=== PATIENT | female | born 1960 | race African-American/Black ===

== ENCOUNTER 2017-11-12 12:06 | Inpatient (IN) | payer OTHER ==
[2017-11-12 14:36] VITALS: BMI 18.8
--- NOTE | 2017-11-12 19:51 | HP ---
COWS - Scale Resting Pulse: 1= [place] 81-100 Sweatin= Chills/Flushing Restless Observation: 1= Difficult to Sit Still Pupil Size: 1= Pupils >than Normal Bone or Joint Aches: 1= Mild Discomfort Runny Nose/ Eye Tearin= Runny Nose/Eyes GI Upset > 30mins: 1= Stomach Cramp Tremor Observation: 1= Tremor [employer] [place], Not Seen Yawning Observation: 2= >3x During Session Anxiety or Irritability: 2=Irritable/Anxious Goose Flesh Skin: 0=Smooth Skin COWS Score: 13 CIWA Score - CIWA Score Nausea/Vomitin-Mild Nausea/No Vomiting Muscle Tremors: 2 Anxiety: 3 Agitation: 4-Moderately Restless Paroxysmal Sweats: 2 Orientation: 0-Oriented Tacttile Disturbances: 0-None Auditory Disturbances: 0-None Visual Disturbances: 0-None Headache: 0-None Present CIWA-Ar Total Score: 12 Admission ROS S - HPI Chief Complaint: opioid and alcohol withdrawal symptoms Allergies/Adverse Reactions: Allergies Allergy/AdvReac Type Severity Reaction Status Date / Time No Known Allergies Allergy Verified 11/12/17 14:56 History of Present Illness: 56 yo female with hx of nicotine, alcohol, and heroin (nasal) dependence is here seeking detox. Last detox four months ago [facility]. Longest period of sobriety seven months, seven yeas ago. Denies hx of overdoses or seizures. Reports hx of frequent blackouts with last episode three months ago. PMHX: COPD, HIV+ (stopped taking meds about six months ago). Denies any psychiatric history. Reports currently undomiciled. Exam Limitations: No Limitations - Ebola screening Have you traveled outside of the country in the last 21 days: No Have you had contact with anyone from an Ebola affected area: No Have you been sick,other than usual withdrawal symptoms: No Do you have a fever: No - Review of Systems Constitutional: Chills, Diaphoresis, Loss of Appetite, Changes in sleep, Weakness, Unintentional Wgt. Loss (20 lbs in the past six month) EENT: reports: No Symptoms Reported Respiratory: reports: Cough (x 3 months) Cardiac: reports: No Symptoms Reported GI: reports: Poor Appetite, Poor Fluid Intake, Indigestion, Abdominal cramping : reports: No Symptoms Reported Musculoskeletal: reports: Back Pain, Joint Pain Integumentary: reports: No Symptoms Reported Neuro: reports: No Symptoms reported Endocrine: reports: Increased Thirst Hematology: reports: See HPI Psychiatric: reports: Orientated x3, Depressed Other Systems: Reviewed and Negative Patient History - Patient Medical History Hx Anemia: No Hx Asthma: No Hx Chronic Obstructive Pulmonary Disease (COPD): Yes Hx Cancer: No Hx Cardiac Disorders: No Hx Congestive Heart Failure: No Hx Hypertension: No Hx Hypercholesterolemia: No Hx Pacemaker: No HX Cerebrovascular Accident: No Hx Seizures: No Hx Dementia: No Hx Diabetes: No Hx Gastrointestinal Disorders: No Hx Liver Disease: No Hx Genitourinary Disorders: No Hx Sexually Transmitted Disorders: No Hx Renal Disease (ESRD): No Hx Thyroid Disease: No Hx Human Immunodeficiency Virus (HIV): Yes Hx Hepatitis C: No Hx Depression: No Hx Suicide Attempt: No Hx Bipolar Disorder: No Hx Schizophrenia: No - Patient Surgical History Past Surgical History: No Hx Neurologic Surgery: No Hx Cataract Extraction: No Hx Cardiac Surgery: No Hx Lung Surgery: No Hx Breast Surgery: No Hx Breast Biopsy: No Hx Abdominal Surgery: No Hx Appendectomy: No Hx Cholecystectomy: No Hx Genitourinary Surgery: No Hx Section: No Hx Orthopedic Surgery: No Anesthesia Reaction: No - PPD History Previous Implant?: Yes Documented Results: Negative w/proof Implanted On Prior R Admission?: Yes Date: 07/15/12 Results: 0 mm PPD to be Administered?: No - Reproductive History Patient : No - Smoking Cessation Smoking history: Current every day smoker Have you smoked in the past 12 months: Yes Aproximately how many cigarettes per day: 8 Hx Chewing Tobacco Use: No Initiated information on smoking cessation: Yes 'Breaking Loose' booklet given: 11/12/17 - Substance & Tx. History Hx Alcohol Use: Yes Hx Substance Use: Yes Substance Use Type: Alcohol, Heroin Hx Substance Use Treatment: Yes (Last detox four months ago [facility].) - Substances Abused Heroin Route: Inhalation Frequency: Daily Amount used: 6-7 bags Age of first use: 17 Date of Last Use: 11/12/17 Alcohol-vodka/beer Route: Oral Frequency: Daily Amount used: 1 pt./1-6 pk. Age of first use: 17 Date of Last Use: 11/12/17 Family Disease History - Family Disease History Family Disease History: Other: Mother ( alcoholism ) Admission Physical Exam [facility] - Vital Signs Vital Signs: Vital Signs - 24 hr 11/12/17 14:34 Temperature 97.5 F L Pulse Rate 79 Respiratory 18 Rate Blood Pressure 118/79 - Physical General Appearance: Yes: Disheveled, Mild Distress, Thin, Tremorous, Anxious HEENTM: Yes: EOMI, Hearing grossly Normal, Normal ENT Inspection, Normocephalic , Normal Voice, UNIQUE, Pharynx Normal, Tm's normal Respiratory: Yes: Chest Non-Tender, Lungs Clear, Normal Breath Sounds, No Respiratory Distress, No Accessory Muscle Use Neck: Yes: Within Normal Limits Breast: Yes: Breast Exam Deferred Cardiology: Yes: Regular Rhythm, Regular Rate Abdominal: Yes: Normal Bowel Sounds, Non Tender, Flat, Soft Genitourinary: Yes: Within Normal Limits Back: Yes: Normal Inspection Musculoskeletal: Yes: full range of Motion, Gait Steady, Pelvis Stable Extremities: Yes: Normal Capillary Refill, Normal Inspection, Normal Range of Motion, Non-Tender 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, Fully Oriented, Alert, Motor Strength 5/5, Depressed Affect Integumentary: Yes: Normal Color, Warm, Diaphoresis Lymphatic: Yes: Within Normal Limits - Diagnostic (1) Alcohol dependence with withdrawal Current Visit: Yes Status: Acute Qualifiers: Complication of substance-induced condition: uncomplicated Qualified Code(s ): F10.230 - Alcohol dependence with withdrawal, uncomplicated (2) Opioid dependence with withdrawal Current Visit: Yes Status: Acute (3) Cough Current Visit: Yes Status: Acute Comment: x 3 months (4) COPD (chronic obstructive pulmonary disease) Current Visit: Yes Status: Chronic Qualifiers: COPD type: unspecified COPD Qualified Code(s): J44.9 - Chronic obstructive pulmonary disease, unspecified (5) Human immunodeficiency virus infection Current Visit: Yes Status: Chronic Comment: taken no meds in past six months (6) Weight decreased Current Visit: Yes Status: Active (7) Nicotine dependence Current Visit: Yes Status: Acute Qualifiers: Nicotine product type: cigarettes Cleared for Admission [facility] - Detox or Rehab [facility] Level of Care: Medically Managed Detox Regimen/Protocol: Methadone/Librium [facility] Breath Alcohol Content Breath Alcohol Content: 0 Urine Pregancy Test - Result Urine Test Results: Negative- NO Line Present Urine Drug Screen - Results Drug Screen Negative: No Urine Drug Screen Results: OPI-Opiates, BAR-Barbiturates, MTD-Methadone, OXY- Oxycodone, FEN-Fentanyl
[2017-11-12] MEDS ORDERED: ALBUTEROL SO4 8 GM HFA INHALER IH PRN (20:00)
[2017-11-12] MEDS ORDERED: MENTHOL/PHENOL 1 EACH UD MM PRN (20:06)
[2017-11-12] MEDS ORDERED: P-EPHED 60MG/TRIPROLIDI 2.5MG TABLET PO PRN (20:06)
[2017-11-12] MEDS ORDERED: MAGNESIUM CITRATE 300 ML BOTTLE PO PRN (20:06)
[2017-11-12] MEDS ORDERED: LOPERAMIDE HCL 2 MG CAPSULE PO PRN (20:06)
[2017-11-12] MEDS ORDERED: MAGNESIUM HYDROX 2400MG/30ML ORAL SUSPENSION 30 ML CUP PO PRN (20:06)
[2017-11-12] MEDS ORDERED: NICOTINE POLACRILEX 2 MG GUM BUC PRN (20:06)
[2017-11-12] MEDS ORDERED: ACETAMINOPHEN 325 MG TABLET (FP) PO PRN (20:06)
[2017-11-12] MEDS ORDERED: IBUPROFEN 400 MG TABLET (FP) PO PRN (20:06)
[2017-11-12] MEDS ORDERED: guaiFENesin/D-METHORPHAN HB 10 ML UNIT-DOSE CUPS PO PRN (20:06)
[2017-11-12] MEDS ORDERED: METHADONE HCL 10 MG TABLET (FOR DETOX USE ONLY) PO ONE ×2 (20:06→23:00)
[2017-11-12] MEDS ORDERED: MAG HYDROX/AL HYDROX/SIMETH 30 ML UNIT-DOSE CUP PO PRN (20:06)
[2017-11-12] MEDS ORDERED: chlordiazePOXIDE HCL 25 MG CAPSULE ONE (20:17)
[2017-11-12] MEDS: chlordiazePOXIDE HCL 25 MG CAPSULE PO PRN (20:21)
[2017-11-12] MEDS ORDERED: MELATONIN 5 MG TABLETS PO PRN (22:00)
[2017-11-12] MEDS: THIAMINE HCL 100 MG TABLET (FP) PO SCH (22:37)
[2017-11-12] MEDS: chlordiazePOXIDE HCL 25 MG CAPSULE PO SCH (22:38)
[2017-11-13 00:53] LABS: URINE APPEARANCE SLCLOUDY; URINE BILIRUBIN NEGATIVE (<2.0 mg/dL); URINE GLUCOSE (UA) NEGATIVE (NEGATIVE); URINE KETONE NEGATIVE (NEGATIVE); URINE LEUK ESTERASE NEGATIVE (NEGATIVE); URINE NITRITE NEGATIVE (NEGATIVE); URINE UROBILINOGEN 4.0 E.U/dl mg/dL (0.2-1.0)
[2017-11-13 00:54] LABS: URINE COLOR YELLOW; URINE PROTEIN 1+ (NEGATIVE)
[2017-11-13 01:00] LABS: EPI CELLS MANY /HPF (FEW); URINE MUCUS RARE
[2017-11-13] MEDS: chlordiazePOXIDE HCL 25 MG CAPSULE PO SCH ×4 (05:33→22:55)
--- NOTE | 2017-11-13 09:36 | EKG ---
Test Reason : Blood Pressure : / mmHG Vent. Rate : 072 BPM Atrial Rate : 072 BPM P-R Int : 150 ms QRS Dur : 084 ms QT Int : 432 ms P-R-T Axes : 086 074 076 degrees QTc Int : 473 ms NORMAL SINUS RHYTHM BIATRIAL ENLARGEMENT ABNORMAL ECG NO PREVIOUS ECGS AVAILABLE Confirmed by ASIA DELANEY MD ([id number]) on 11/13/2017 9:36:10 AM Referred By: Confirmed By:ASIA DELANEY MD
[2017-11-13] MEDS ORDERED: METHADONE HCL 10 MG TABLET (FOR DETOX USE ONLY) PO SCH (10:00)
[2017-11-13] MEDS: NICOTINE 14 MG/24 HOURS TOPICAL PATCH TD SCH (10:17)
[2017-11-13] MEDS: chlordiazePOXIDE HCL 25 MG CAPSULE PO PRN (10:17)
[2017-11-13] MEDS: PRENATAL VITAMINS W/ FOLIC ACID TABLET (FP) PO SCH (10:17)
--- NOTE | 2017-11-13 11:05 | CONSULT ---
[facility] Psychiatric Consult - Data Date of interview: 11/13/17 Admission source: [facility] Identifying data: Patient is a 56 year old single female, mother of seven, unemployed, and is currently homeless. This is one of multiple admissions for patient. Pt. admitted to for alcohol and opiate dependence. Substance Abuse History: Smoking Cessation. Smoking history: Current every day smoker. Have you smoked in the past 12 months: Yes. Aproximately how many cigarettes per day: 8. Hx Chewing Tobacco Use: No. Initiated information on smoking cessation: Yes. 'Breaking Loose' booklet given: 11/12/17. - Substance & Tx. History. Hx Alcohol Use: Yes. Hx Substance Use: Yes. Substance Use Type : Alcohol, Heroin. Hx Substance Use Treatment: Yes (Last detox four months ago [facility] - Substances Abused. Heroin. Route: Inhalation. Frequency: Daily. Amount used: 6-7 bags. Age of first use: 17. Date of Last Use: 11/12/17. Alcohol-vodka/beer. Route: Oral. Frequency: Daily. Amount used: 1 pt./1-6 pk. Age of first use: 17. Date of Last Use: 11/12/17 Medical History: COPD, HIV Psychiatric History: Patient denies h/o psychiatric hospitalization, outpatient care, and suicide attempt. Physical/Sexual Abuse/Trauma History: denies. Mental Status Exam - Mental Status Exam Alert and Oriented to: Time, Place, Person Cognitive Function: Good Patient Appearance: Well Groomed Mood: Euthymic Affect: Appropriate Patient Behavior: Appropriate, Cooperative Speech Pattern: Clear, Appropriate Voice Loudness: Normal Thought Process: Intact, Goal Oriented Thought Disorder: Not Present Hallucinations: Denies Suicidal Ideation: Denies Homicidal Ideation: Denies Insight/Judgement: Poor Sleep: Fair Appetite: Fair Muscle strength/Tone: Normal Gait/Station: Normal Psychiatric Findings - Problem List ([place] 1, 2,3) (1) Alcohol dependence with withdrawal Current Visit: Yes Status: Acute Qualifiers: Complication of substance-induced condition: uncomplicated Qualified Code(s ): F10.230 - Alcohol dependence with withdrawal, uncomplicated (2) Nicotine dependence Current Visit: Yes Status: Chronic Qualifiers: Nicotine product type: cigarettes (3) Opioid dependence with withdrawal Current Visit: Yes Status: Acute - Initial Treatment Plan Initial Treatment Plan: Psychoeducation provided. Detoxification in progress. Observation.
[2017-11-13 11:11] LABS: HEMATOCRIT 37.6 % (32.4-45.2); HEMOGLOBIN 12.3 GM/dL (10.7-15.3); MCH 29.9 pg (25.7-33.7); MCHC 32.8 g/dl (32.0-36.0); MEAN CELL VOLUME 91.2 fl (80-96); MEAN PLT VOLUME 8.6 fl (7.5-11.1); PLATELET COUNT 72 K/MM3 (134-434); RBC 4.13 M/mm3 (3.60-5.2); RDW 14.3 % (11.6-15.6); WHITE BLOOD COUNT 3.1 K/mm3 (4.0-10.0)
[2017-11-13 11:25] LABS: CHLORIDE 104 mmol/L (98-107); POTASSIUM 3.6 mmol/L (3.5-5.1); SODIUM 142 mmol/L (136-145)
--- NOTE | 2017-11-13 11:29 | PN ---
S CIWA - CIWA Score Nausea/Vomitin Muscle Tremors: 2 Anxiety: 2 Agitation: 2 Paroxysmal Sweats: 2 Orientation: 1-Uncertain about Date Tacttile Disturbances: 1-Very Mild Itch/Numbness Auditory Disturbances: 0-None Visual Disturbances: 0-None Headache: 0-None Present CIWA-Ar Total Score: 12 BHS COWS - Scale Resting Pulse: 1= [place] 81-100 Sweatin= Chills/Flushing Restless Observation: 1= Difficult to Sit Still Pupil Size: 1= Pupils >than Normal Bone or Joint Aches: 1= Mild Discomfort Runny Nose/ Eye Tearin= Nasal Congestion GI Upset > 30mins: 1= Stomach Cramp Tremor Observation of Outstretched Hands: 1= Tremor [place], Not Seen Yawning Observation: 0= None Anxiety or Irritability: 1=Feels Anxious/Irritable Goose Flesh Skin: 0=Smooth Skin COWS Score: 9 BHS Progress Note (SOAP) Subjective: INTERRUPTED SLEEP, MILD SWEATS Objective: 11/13/17 11:26 Vital Signs Temperature 98.8 F 11/13/17 09:40 Pulse Rate 72 11/13/17 09:40 Respiratory Rate 16 11/13/17 09:40 Blood Pressure 143/79 11/13/17 09:40 O2 Sat by Pulse Oximetry (%) Laboratory Tests 11/12/17 11/13/17 23:55 07:20 WBC 3.1 L RBC 4.13 Hgb 12.3 Hct 37.6 MCV 91.2 MCH 29.9 MCHC 32.8 RDW 14.3 Plt Count 72 L D MPV 8.6 Urine Color Yellow Urine Appearance Slcloudy Urine pH 5.0 Ur Specific [place] 1.026 Urine Protein 1+ H Urine Glucose (UA) Negative Urine Ketones Negative Urine Blood 1+ H Urine Nitrite Negative Urine Bilirubin Negative Urine Urobilinogen 4.0 e.u/dl H Ur Leukocyte Esterase Negative Urine WBC (Auto) 7 Urine RBC (Auto) 58 Ur Epithelial Cells Many Urine Mucus Rare PENDING LABS PT AOX3 IN NAD AMBULATING Assessment: 11/13/17 11:27 WITHDRAWAL SX'S HIV HEMATURIA Plan: CONT. DETOX INCREASE FLUIDS F/UP BASIC METABOLIC LAB REPEAT U/A
[2017-11-13 11:40] LABS: ALBUMIN 2.5 g/dl (3.4-5.0); ALK PHOS 73 U/L (45-117); ANION GAP 11 MMOL/L (8-16); BILIRUBIN,TOTAL 0.3 mg/dL (0.2-1.0); BLOOD UREA NITROGEN 12 mg/dL (7-18); CO2 27 mmol/L (21-32); CREATININE 0.7 mg/dL (0.55-1.3); GLUCOSE,RANDOM 87 mg/dL (74-106); SGOT/AST 32 U/L (15-37); SGPT/ALT 31 U/L (13-61); TOT PROT 6.9 g/dl (6.4-8.2)
[2017-11-13] MEDS: THIAMINE HCL 100 MG TABLET (FP) PO SCH (22:55)
[2017-11-14] MEDS: chlordiazePOXIDE HCL 25 MG CAPSULE PO SCH ×3 (06:19→18:22)
[2017-11-14] MEDS: METHADONE HCL 5 MG TABLET (FOR DETOX USE ONLY) PO SCH (10:15)
[2017-11-14] MEDS: PRENATAL VITAMINS W/ FOLIC ACID TABLET (FP) PO SCH (10:15)
[2017-11-14] MEDS: NICOTINE 14 MG/24 HOURS TOPICAL PATCH TD SCH (10:15)
--- NOTE | 2017-11-14 12:05 | PN ---
[facility] CIWA - CIWA Score Nausea/Vomitin-Mild Nausea/No Vomiting Muscle Tremors: 1-None Visible, but [place] Anxiety: 1-Mildly Anxious Agitation: 1-Slight > Activity Paroxysmal Sweats: 1-Minimal Palms Moist Orientation: 0-Oriented Tacttile Disturbances: 0-None Auditory Disturbances: 0-None Visual Disturbances: 0-None Headache: 0-None Present CIWA-Ar Total Score: 5 S COWS - Scale Resting Pulse: 1= [place] 81-100 Sweatin= No chills or Flushing Restless Observation: 1= Difficult to Sit Still Pupil Size: 1= Pupils >than Normal Bone or Joint Aches: 1= Mild Discomfort Runny Nose/ Eye Tearin= Nasal Congestion GI Upset > 30mins: 0= None Tremor Observation of Outstretched Hands: 1= Tremor [place], Not Seen Yawning Observation: 0= None Anxiety or Irritability: 1=Feels Anxious/Irritable Goose Flesh Skin: 0=Smooth Skin COWS Score: 7 [facility] Progress Note (SOAP) Subjective: S: pt Objective: 11/14/17 12:01 S: pt without complaints, doing OK with meds O: Laboratory Tests 11/12/17 11/13/17 11/13/17 23:55 07:20 07:20 WBC 3.1 L RBC 4.13 Hgb 12.3 Hct 37.6 MCV 91.2 MCH 29.9 MCHC 32.8 RDW 14.3 Plt Count 72 L D MPV 8.6 Sodium 142 Potassium 3.6 Chloride 104 Carbon Dioxide 27 Anion Gap 11 BUN 12 Creatinine 0.7 Creat Clearance w eGFR > 60 Random Glucose 87 Calcium 8.0 L Total Bilirubin 0.3 AST 32 ALT 31 Alkaline Phosphatase 73 Total Protein 6.9 Albumin 2.5 L Urine Color Yellow Urine Appearance Slcloudy Urine pH 5.0 Ur Specific [place] 1.026 Urine Protein 1+ H Urine Glucose (UA) Negative Urine Ketones Negative Urine Blood 1+ H Urine Nitrite Negative Urine Bilirubin Negative Urine Urobilinogen 4.0 e.u/dl H Ur Leukocyte Esterase Negative Urine WBC (Auto) 7 Urine RBC (Auto) 58 Ur Epithelial Cells Many Urine Mucus Rare RPR Titer 11/13/17 07:20 WBC RBC Hgb Hct MCV MCH MCHC RDW Plt Count MPV Sodium Potassium Chloride Carbon Dioxide Anion Gap BUN Creatinine Creat Clearance w eGFR Random Glucose Calcium Total Bilirubin AST ALT Alkaline Phosphatase Total Protein Albumin Urine Color Urine Appearance Urine pH Ur Specific [place] Urine Protein Urine Glucose (UA) Urine Ketones Urine Blood Urine Nitrite Urine Bilirubin Urine Urobilinogen Ur Leukocyte Esterase Urine WBC (Auto) Urine RBC (Auto) Ur Epithelial Cells Urine Mucus RPR Titer Nonreactive Vital Signs - 24 hr 11/13/17 11/13/17 11/13/17 14:36 18:02 22:08 Temperature 98.9 F 98.2 F 98.2 F Pulse Rate 77 80 68 Respiratory 16 18 18 Rate Blood Pressure 100/56 112/77 122/82 11/14/17 11/14/17 11/14/17 03:30 07:29 08:43 Temperature 98.2 F 98.1 F Pulse Rate 64 70 Respiratory 18 18 18 Rate Blood Pressure 134/83 135/91 VS OK labs: decreased plts and WBC: pt has HIV a/p: 56 yo female with hx of nicotine, alcohol, and heroin (nasal) dependence is here for detox. Continue detox protocol. doing well, continue HIV meds at d/c
[2017-11-14 13:31] LABS: URINE APPEARANCE SLCLOUDY; URINE BILIRUBIN NEGATIVE (<2.0 mg/dL); URINE COLOR LTYELLOW; URINE GLUCOSE (UA) NEGATIVE (NEGATIVE); URINE KETONE NEGATIVE (NEGATIVE); URINE NITRITE NEGATIVE (NEGATIVE); URINE PROTEIN NEGATIVE (NEGATIVE); URINE UROBILINOGEN NEGATIVE mg/dL (0.2-1.0)
[2017-11-14 13:35] LABS: URINE LEUK ESTERASE 3+ (NEGATIVE)
[2017-11-14 13:39] LABS: EPI CELLS FEW /HPF (FEW)
[2017-11-14] MEDS: THIAMINE HCL 100 MG TABLET (FP) PO SCH (22:18)
[2017-11-14] MEDS: chlordiazePOXIDE 5 MG CAPSULE PO SCH (22:18)
[2017-11-15] MEDS: chlordiazePOXIDE 5 MG CAPSULE PO SCH ×3 (05:52→17:45)
[2017-11-15] MEDS: PRENATAL VITAMINS W/ FOLIC ACID TABLET (FP) PO SCH (10:21)
[2017-11-15] MEDS: NICOTINE 14 MG/24 HOURS TOPICAL PATCH TD SCH (10:21)
[2017-11-15] MEDS: METHADONE HCL 5 MG TABLET (FOR DETOX USE ONLY) PO SCH (10:21)
--- NOTE | 2017-11-15 10:59 | PN ---
BHS Progress Note (SOAP) Subjective: sweat tremor diarrhea restlessness irritable Objective: 11/15/17 10:58 Vital Signs Temperature 99.5 F 11/15/17 09:20 Pulse Rate 61 11/15/17 09:20 Respiratory Rate 16 11/15/17 09:20 Blood Pressure 121/75 11/15/17 09:20 O2 Sat by Pulse Oximetry (%) Laboratory Last Values WBC 3.1 K/mm3 (4.0-10.0) L 11/13/17 07:20 RBC 4.13 M/mm3 (3.60-5.2) 11/13/17 07:20 Hgb 12.3 GM/dL (10.7-15.3) 11/13/17 07:20 Hct 37.6 % (32.4-45.2) 11/13/17 07:20 MCV 91.2 fl (80-96) 11/13/17 07:20 MCH 29.9 pg (25.7-33.7) 11/13/17 07:20 MCHC 32.8 g/dl (32.0-36.0) 11/13/17 07:20 RDW 14.3 % (11.6-15.6) 11/13/17 07:20 Plt Count 72 K/MM3 (134-434) L D 11/13/17 07:20 MPV 8.6 fl (7.5-11.1) 11/13/17 07:20 Sodium 142 mmol/L (136-145) 11/13/17 07:20 Potassium 3.6 mmol/L (3.5-5.1) 11/13/17 07:20 Chloride 104 mmol/L (98-107) 11/13/17 07:20 Carbon Dioxide 27 mmol/L (21-32) 11/13/17 07:20 Anion Gap 11 MMOL/L (8-16) 11/13/17 07:20 BUN 12 mg/dL (7-18) 11/13/17 07:20 Creatinine 0.7 mg/dL (0.55-1.3) 11/13/17 07:20 Creat Clearance w eGFR > 60 (>60) 11/13/17 07:20 Random Glucose 87 mg/dL (74-106) 11/13/17 07:20 Calcium 8.0 mg/dL (8.5-10.1) L 11/13/17 07:20 Total Bilirubin 0.3 mg/dL (0.2-1.0) 11/13/17 07:20 AST 32 U/L (15-37) 11/13/17 07:20 ALT 31 U/L (13-61) 11/13/17 07:20 Alkaline Phosphatase 73 U/L (45-117) 11/13/17 07:20 Total Protein 6.9 g/dl (6.4-8.2) 11/13/17 07:20 Albumin 2.5 g/dl (3.4-5.0) L 11/13/17 07:20 Urine Color Ltyellow 11/14/17 10:15 Urine Appearance Slcloudy 11/14/17 10:15 Urine pH 8.0 (5.0-8.0) D 11/14/17 10:15 Ur Specific [place] 1.005 (1.001-1.035) 11/14/17 10:15 Urine Protein Negative (NEGATIVE) 11/14/17 10:15 Urine Glucose (UA) Negative (NEGATIVE) 11/14/17 10:15 Urine Ketones Negative (NEGATIVE) 11/14/17 10:15 Urine Blood Negative (NEGATIVE) 11/14/17 10:15 Urine Nitrite Negative (NEGATIVE) 11/14/17 10:15 Urine Bilirubin Negative (<2.0 mg/dL) 11/14/17 10:15 Urine Urobilinogen Negative mg/dL (0.2-1.0) 11/14/17 10:15 Ur Leukocyte Esterase 3+ (NEGATIVE) H 11/14/17 10:15 Urine WBC (Auto) 7 /hpf (3-5) 11/14/17 10:15 Urine RBC (Auto) 6 /hpf (0-3) 11/14/17 10:15 Ur Epithelial Cells Few /HPF (FEW) 11/14/17 10:15 Urine Mucus Rare 11/12/17 23:55 RPR Titer Nonreactive (NONREACTIVE) 11/13/17 07:20 lab noted 11/15/17 10:59 11/15/17 11:00 hiv no treatment uti Assessment: 11/15/17 11:00 withdrawal sx uti leucocytopenia Plan: continue detox bactrim ds bid
[2017-11-15] MEDS ORDERED: SULFAMETHOXAZOLE/TRIMETHOPRIM 800MG/160MG D.S. TABLET PO SCH (11:15)
[2017-11-15] MEDS ORDERED: COLLOIDAL OATMEAL 1 BAR EACH TP PRN (13:25)
--- NOTE | 2017-11-15 13:27 | HP ---
COWS - Scale Resting Pulse: 1= [place] 81-100 Sweatin= Chills/Flushing Restless Observation: 1= Difficult to Sit Still Pupil Size: 1= Pupils >than Normal Bone or Joint Aches: 1= Mild Discomfort Runny Nose/ Eye Tearin= Runny Nose/Eyes GI Upset > 30mins: 1= Stomach Cramp Tremor Observation: 1= Tremor [place], Not Seen Yawning Observation: 2= >3x During Session Anxiety or Irritability: 2=Irritable/Anxious Goose Flesh Skin: 0=Smooth Skin COWS Score: 13 CIWA Score - CIWA Score Nausea/Vomitin-Mild Nausea/No Vomiting Muscle Tremors: 1-None Visible, but [place] Anxiety: 1-Mildly Anxious Agitation: 1-Slight > Activity Paroxysmal Sweats: 1-Minimal Palms Moist Orientation: 0-Oriented Tacttile Disturbances: 0-None Auditory Disturbances: 0-None Visual Disturbances: 0-None Headache: 0-None Present CIWA-Ar Total Score: 5 Admission ROS S - HPI Allergies/Adverse Reactions: Allergies Allergy/AdvReac Type Severity Reaction Status Date / Time sulfamethoxazole AdvReac Verified 11/15/17 13:27 [From Bactrim] trimethoprim [From Bactrim] AdvReac Verified 11/15/17 13:27 - Ebola screening Have you traveled outside of the country in the last 21 days: No Have you had contact with anyone from an Ebola affected area: No Have you been sick,other than usual withdrawal symptoms: No Do you have a fever: No Patient History - Patient Medical History Hx Anemia: No Hx Asthma: No Hx Chronic Obstructive Pulmonary Disease (COPD): Yes Hx Cancer: No Hx Cardiac Disorders: No Hx Congestive Heart Failure: No Hx Hypertension: No Hx Hypercholesterolemia: No Hx Pacemaker: No HX Cerebrovascular Accident: No Hx Seizures: No Hx Dementia: No Hx Diabetes: No Hx Gastrointestinal Disorders: No Hx Liver Disease: No Hx Genitourinary Disorders: No Hx Sexually Transmitted Disorders: No Hx Renal Disease (ESRD): No Hx Thyroid Disease: No Hx Human Immunodeficiency Virus (HIV): Yes Hx Hepatitis C: No Hx Depression: No Hx Suicide Attempt: No Hx Bipolar Disorder: No Hx Schizophrenia: No - Patient Surgical History Past Surgical History: No Hx Neurologic Surgery: No Hx Cataract Extraction: No Hx Cardiac Surgery: No Hx Lung Surgery: No Hx Breast Surgery: No Hx Breast Biopsy: No Hx Abdominal Surgery: No Hx Appendectomy: No Hx Cholecystectomy: No Hx Genitourinary Surgery: No Hx Section: No Hx Orthopedic Surgery: No Anesthesia Reaction: No - PPD History Previous Implant?: Yes Documented Results: Negative w/proof Implanted On Prior [facility] Admission?: Yes Date: 07/15/12 Results: 0 mm - Reproductive History Patient : No - Smoking Cessation Smoking history: Current every day smoker Have you smoked in the past 12 months: Yes Aproximately how many cigarettes per day: 8 Hx Chewing Tobacco Use: No Initiated information on smoking cessation: Yes 'Breaking Loose' booklet given: 11/15/17 - Substances Abused Heroin Route: Inhalation Frequency: Daily Amount used: 6-7 bags Age of first use: 17 Date of Last Use: 11/12/17 Alcohol-vodka/beer Route: Oral Frequency: Daily Amount used: 1 pt./1-6 pk. Age of first use: Date of Last Use: 11/12/17 Family Disease History - Family Disease History Family Disease History: Other: Mother ( alcoholism ) Admission Physical Exam S - Vital Signs Vital Signs: Vital Signs - 24 hr 11/14/17 11/14/17 11/14/17 14:15 17:56 22:08 Temperature 97.7 F 98.1 F 98.6 F Pulse Rate 72 75 70 Respiratory 18 18 16 Rate Blood Pressure 141/76 123/74 134/78 11/15/17 11/15/17 11/15/17 00:30 03:30 07:08 Temperature 98.2 F Pulse Rate 60 Respiratory 18 18 18 Rate Blood Pressure 129/81 11/15/17 09:20 Temperature 99.5 F Pulse Rate 61 Respiratory 16 Rate Blood Pressure 121/75 BHS Breath Alcohol Content Breath Alcohol Content: 0 Urine Pregancy Test - Result Urine Test Results: Negative- NO Line Present Urine Drug Screen - Results Drug Screen Negative: No Urine Drug Screen Results: OPI-Opiates, BAR-Barbiturates, MTD-Methadone, OXY- Oxycodone, FEN-Fentanyl
[2017-11-15] MEDS ORDERED: diphenhydrAMINE HCL 50 MG CAPSULE PO ONE (13:28)
[2017-11-15] MEDS ORDERED: diphenhydrAMINE HCL 25 MG CAPSULE (FP) PO ONE (14:02)
[2017-11-15] MEDS: HYDROCORTISONE 1% TOPICAL OINT 30 GM TUBE TP SCH ×3 (14:09→22:51)
[2017-11-15] MEDS: THIAMINE HCL 100 MG TABLET (FP) PO SCH (22:51)
[2017-11-15] MEDS: chlordiazePOXIDE HCL 10 MG CAPSULE PO SCH (22:51)
[2017-11-16] MEDS: chlordiazePOXIDE HCL 10 MG CAPSULE PO SCH ×3 (05:46→18:05)
[2017-11-16] MEDS ORDERED: METHADONE HCL 10 MG TABLET (FOR DETOX USE ONLY) PO SCH (10:00)
[2017-11-16] MEDS: HYDROCORTISONE 1% TOPICAL OINT 30 GM TUBE TP SCH ×3 (10:51→23:06)
[2017-11-16] MEDS: PRENATAL VITAMINS W/ FOLIC ACID TABLET (FP) PO SCH (10:51)
[2017-11-16] MEDS: NICOTINE 14 MG/24 HOURS TOPICAL PATCH TD SCH (10:52)
--- NOTE | 2017-11-16 12:53 | PN ---
BHS Progress Note (SOAP) Subjective: feeling better no tremor no body ache less sweat sleep better at night Objective: 11/16/17 12:52 Vital Signs Temperature 98.1 F 11/16/17 09:14 Pulse Rate 59 L 11/16/17 09:14 Respiratory Rate 16 11/16/17 09:14 Blood Pressure 155/91 11/16/17 09:14 O2 Sat by Pulse Oximetry (%) Laboratory Last Values WBC 3.1 K/mm3 (4.0-10.0) L 11/13/17 07:20 RBC 4.13 M/mm3 (3.60-5.2) 11/13/17 07:20 Hgb 12.3 GM/dL (10.7-15.3) 11/13/17 07:20 Hct 37.6 % (32.4-45.2) 11/13/17 07:20 MCV 91.2 fl (80-96) 11/13/17 07:20 MCH 29.9 pg (25.7-33.7) 11/13/17 07:20 MCHC 32.8 g/dl (32.0-36.0) 11/13/17 07:20 RDW 14.3 % (11.6-15.6) 11/13/17 07:20 Plt Count 72 K/MM3 (134-434) L D 11/13/17 07:20 MPV 8.6 fl (7.5-11.1) 11/13/17 07:20 Sodium 142 mmol/L (136-145) 11/13/17 07:20 Potassium 3.6 mmol/L (3.5-5.1) 11/13/17 07:20 Chloride 104 mmol/L (98-107) 11/13/17 07:20 Carbon Dioxide 27 mmol/L (21-32) 11/13/17 07:20 Anion Gap 11 MMOL/L (8-16) 11/13/17 07:20 BUN 12 mg/dL (7-18) 11/13/17 07:20 Creatinine 0.7 mg/dL (0.55-1.3) 11/13/17 07:20 Creat Clearance w eGFR > 60 (>60) 11/13/17 07:20 Random Glucose 87 mg/dL (74-106) 11/13/17 07:20 Calcium 8.0 mg/dL (8.5-10.1) L 11/13/17 07:20 Total Bilirubin 0.3 mg/dL (0.2-1.0) 11/13/17 07:20 AST 32 U/L (15-37) 11/13/17 07:20 ALT 31 U/L (13-61) 11/13/17 07:20 Alkaline Phosphatase 73 U/L (45-117) 11/13/17 07:20 Total Protein 6.9 g/dl (6.4-8.2) 11/13/17 07:20 Albumin 2.5 g/dl (3.4-5.0) L 11/13/17 07:20 Urine Color Ltyellow 11/14/17 10:15 Urine Appearance Slcloudy 11/14/17 10:15 Urine pH 8.0 (5.0-8.0) D 11/14/17 10:15 Ur Specific [place] 1.005 (1.001-1.035) 11/14/17 10:15 Urine Protein Negative (NEGATIVE) 11/14/17 10:15 Urine Glucose (UA) Negative (NEGATIVE) 11/14/17 10:15 Urine Ketones Negative (NEGATIVE) 11/14/17 10:15 Urine Blood Negative (NEGATIVE) 11/14/17 10:15 Urine Nitrite Negative (NEGATIVE) 11/14/17 10:15 Urine Bilirubin Negative (<2.0 mg/dL) 11/14/17 10:15 Urine Urobilinogen Negative mg/dL (0.2-1.0) 11/14/17 10:15 Ur Leukocyte Esterase 3+ (NEGATIVE) H 11/14/17 10:15 Urine WBC (Auto) 7 /hpf (3-5) 11/14/17 10:15 Urine RBC (Auto) 6 /hpf (0-3) 11/14/17 10:15 Ur Epithelial Cells Few /HPF (FEW) 11/14/17 10:15 Urine Mucus Rare 11/12/17 23:55 RPR Titer Nonreactive (NONREACTIVE) 11/13/17 07:20 lab noted Assessment: 11/16/17 12:52 mild withdrawal sx Plan: medically supervised detox
[2017-11-16] MEDS: THIAMINE HCL 100 MG TABLET (FP) PO SCH (23:06)
[2017-11-17] MEDS ORDERED: METHADONE HCL 5 MG TABLET (FOR DETOX USE ONLY) PO SCH (06:00)
--- NOTE | 2017-11-17 08:45 | DS ---
[facility] Detox Discharge Summary Admission Date: 11/12/17 Discharge Date: 11/17/17 - History Present History: Alcohol Dependence, Opioid Dependence Additional Comments: 56 years old female admitted on 11/12/17 for alcohol and opiate withdrawal sx completed detox regimen tolerated well denies alcohol and opiate withdrawal sx alert oriented x 3 no acute distress aftercare [facility] - Physical Exam Results Vital Signs: Vital Signs Temperature 99.5 F 11/17/17 07:14 Pulse Rate 65 11/17/17 07:14 Respiratory Rate 18 11/17/17 07:14 Blood Pressure 123/73 11/17/17 07:14 O2 Sat by Pulse Oximetry (%) Pertinent Admission Physical Exam Findings: alcohol and opaite withdrawal sx Vital Signs Temperature 98.7 F 11/17/17 09:46 Pulse Rate 78 11/17/17 09:46 Respiratory Rate 18 11/17/17 09:46 Blood Pressure 109/72 11/17/17 09:46 O2 Sat by Pulse Oximetry (%) Laboratory Last Values WBC 3.1 K/mm3 (4.0-10.0) L 11/13/17 07:20 RBC 4.13 M/mm3 (3.60-5.2) 11/13/17 07:20 Hgb 12.3 GM/dL (10.7-15.3) 11/13/17 07:20 Hct 37.6 % (32.4-45.2) 11/13/17 07:20 MCV 91.2 fl (80-96) 11/13/17 07:20 MCH 29.9 pg (25.7-33.7) 11/13/17 07:20 MCHC 32.8 g/dl (32.0-36.0) 11/13/17 07:20 RDW 14.3 % (11.6-15.6) 11/13/17 07:20 Plt Count 72 K/MM3 (134-434) L D 11/13/17 07:20 MPV 8.6 fl (7.5-11.1) 11/13/17 07:20 Sodium 142 mmol/L (136-145) 11/13/17 07:20 Potassium 3.6 mmol/L (3.5-5.1) 11/13/17 07:20 Chloride 104 mmol/L (98-107) 11/13/17 07:20 Carbon Dioxide 27 mmol/L (21-32) 11/13/17 07:20 Anion Gap 11 MMOL/L (8-16) 11/13/17 07:20 BUN 12 mg/dL (7-18) 11/13/17 07:20 Creatinine 0.7 mg/dL (0.55-1.3) 11/13/17 07:20 Creat Clearance w eGFR > 60 (>60) 11/13/17 07:20 Random Glucose 87 mg/dL (74-106) 11/13/17 07:20 Calcium 8.0 mg/dL (8.5-10.1) L 11/13/17 07:20 Total Bilirubin 0.3 mg/dL (0.2-1.0) 11/13/17 07:20 AST 32 U/L (15-37) 11/13/17 07:20 ALT 31 U/L (13-61) 11/13/17 07:20 Alkaline Phosphatase 73 U/L (45-117) 11/13/17 07:20 Total Protein 6.9 g/dl (6.4-8.2) 11/13/17 07:20 Albumin 2.5 g/dl (3.4-5.0) L 11/13/17 07:20 Urine Color Ltyellow 11/14/17 10:15 Urine Appearance Slcloudy 11/14/17 10:15 Urine pH 8.0 (5.0-8.0) D 11/14/17 10:15 Ur Specific [place] 1.005 (1.001-1.035) 11/14/17 10:15 Urine Protein Negative (NEGATIVE) 11/14/17 10:15 Urine Glucose (UA) Negative (NEGATIVE) 11/14/17 10:15 Urine Ketones Negative (NEGATIVE) 11/14/17 10:15 Urine Blood Negative (NEGATIVE) 11/14/17 10:15 Urine Nitrite Negative (NEGATIVE) 11/14/17 10:15 Urine Bilirubin Negative (<2.0 mg/dL) 11/14/17 10:15 Urine Urobilinogen Negative mg/dL (0.2-1.0) 11/14/17 10:15 Ur Leukocyte Esterase 3+ (NEGATIVE) H 11/14/17 10:15 Urine WBC (Auto) 7 /hpf (3-5) 11/14/17 10:15 Urine RBC (Auto) 6 /hpf (0-3) 11/14/17 10:15 Ur Epithelial Cells Few /HPF (FEW) 11/14/17 10:15 Urine Mucus Rare 11/12/17 23:55 RPR Titer Nonreactive (NONREACTIVE) 11/13/17 07:20 lab noted calcium rich food agrees to return to infectious disease specialist for continuity of hiv care - Treatment Hospital Course: Detox Protocol Followed, Detoxed Safely, Responded well, Discharged Condition Good, Rehab Referral Accepted Patient has Accepted a Rehab Referral to: [facility] - Medication Discharge Medications: Ambulatory Orders Albuterol Sulfate Inhaler - [Ventolin HFA Inhaler -] 2 inh PO Q4H #1 inhaler - Diagnosis (1) Alcohol dependence Current Visit: Yes Status: Active (2) Opioid dependence Current Visit: Yes Status: Active (3) Human immunodeficiency virus infection Current Visit: Yes Status: Chronic (4) Weight decreased Current Visit: Yes Status: Active (5) COPD (chronic obstructive pulmonary disease) Current Visit: Yes Status: Chronic Qualifiers: COPD type: unspecified COPD Qualified Code(s): J44.9 - Chronic obstructive pulmonary disease, unspecified (6) Nicotine dependence Current Visit: Yes Status: Acute Qualifiers: Nicotine product type: cigarettes Substance use status: in withdrawal Qualified Code(s): F17.213 - Nicotine dependence, cigarettes, with withdrawal - AMA Did Patient Leave Against Medical Advice: No
[2017-11-17 09:46] VITALS: BP 109/72; PULSE 78; TEMP 98.7
== END 2017-11-17 09:42 | disposition home or self-care (01) | DRG 773 ==
LOC: YASAS 12:06 → Y6N 16:37
PROC: HZ2ZZZZ Detoxification Services for Substance Abuse Treatment (ICD-10-PCS; principal; 2017-11-12)
DX: F11.23 Opioid dependence with withdrawal (principal); F10.230 Alcohol dependence with withdrawal, uncomplicated; F17.213 Nicotine dependence, cigarettes, with withdrawal; Z21 Asymptomatic human immunodeficiency virus [HIV] infection status; J44.9 Chronic obstructive pulmonary disease, unspecified; R05 Cough; R63.4 Abnormal weight loss; Z68.1 Body mass index [BMI] 19.9 or less, adult; Z88.2 Allergy status to sulfonamides; Z59.0 Homelessness
CPT/HCPCS: 36415; 71046-TC-FY; 80053; 81003; 81015; 85027; 86593; 93005; 93010